=== PATIENT | female | born 1985 | race Two or more races ===

== ENCOUNTER 2018-09-10 10:24 | Day surgery (SDC) | payer BC ==
[2018-09-09 11:35] LABS: BASOPHILS # (AUTO) 0.06 x10^3/uL (0-0.1); BASOPHILS % (AUTO) 1 % (0-1); EOSINOPHILS # (AUTO) 0.07 x10^3/uL (0-0.4); EOSINOPHILS % (AUTO) 1 % (1-7); LYMPHOCYTES # (AUTO) 2.22 x10^3/uL (1-3.4); LYMPHOCYTES % (AUTO) 26 % (22-44); MD NO; MEAN CORPUSCULAR HEMOGLOBIN 31.2 pg (27.0-34.8); MEAN CORPUSCULAR HGB CONC 34.3 g/dL (32.4-35.8); MEAN PLATELET VOLUME 8.6 fL (7.4-10.4); MONOCYTES # (AUTO) 0.61 x10^3/uL (0.2-0.8); MONOCYTES % (AUTO) 7 % (2-9); NEUTROPHILS # (AUTO) 5.61 x10^3/uL (1.8-6.8); NEUTROPHILS % (AUTO) 66 % (42-75); PLATELET COUNT 311 x10^3/uL (130-400); RED BLOOD COUNT 4.97 x10^6/uL (3.82-5.3); RED CELL DISTRIBUTION WIDTH 12.4 % (9.6-15.2)
[~2018-09-10] VITALS: Ht 157.5 cm; Wt 65.4 kg
[~2018-09-10 10:24] MED LIST: Iron PO
[2018-09-10] MEDS ORDERED: BUPIVACAINE 0.25% ONE (10:56)
[2018-09-10] MEDS ORDERED: SILVER NITRATE STICK TP ONE (10:59)
[2018-09-10] MEDS ORDERED: BUPIVACAINE/PF-EPI 0.5% 1:200K ONE (10:59)
[2018-09-10] MEDS ORDERED: LACTATED RINGERS 1,000 ML IV SCH (11:00)
[2018-09-10 11:22] VITALS: BP 123/78
[2018-09-10] MEDS ORDERED: SCOPOLAMINE PATCH, 1.5MG PATCH.TD72 TD ONE (11:43)
[2018-09-10] MEDS ORDERED: ACETAMINOPHEN 500 MG TABLET ONE (11:44)
[2018-09-10] MEDS ORDERED: MIDAZOLAM 1 MG/ML, 2ML ONE (11:47)
[2018-09-10] MEDS ORDERED: FENTANYL PF 100 MCG/2ML ONE (11:47)
[2018-09-10] MEDS ORDERED: PROPOFOL 10 MG/ML, 20ML ONE (11:49)
[2018-09-10] MEDS ORDERED: MEPERIDINE/PF 25MG/0.5ML IVPush PRN (13:00)
[2018-09-10] MEDS ORDERED: LABETALOL 5MG/ML, 20ML IV PRN (13:00)
[2018-09-10] MEDS ORDERED: HYDROmorphone 1 MG/ML, 1ML IV PRN (13:00)
[2018-09-10] MEDS ORDERED: hydrALAzine 20 MG/ML, 1ML IV PRN (13:00)
[2018-09-10] MEDS ORDERED: PROMETHAZINE 25 MG/ML, 1ML IV PRN (13:00)
[2018-09-10] MEDS ORDERED: EPHEDRINE 50 MG/ML, 1ML IVPush PRN (13:00)
[2018-09-10] MEDS ORDERED: HALOPERIDOL 5 MG/ML IV PRN (13:00)
[2018-09-10] MEDS ORDERED: ALBUTEROL SULFATE 2.5 MG/3 ML NPPB PRN (13:00)
[2018-09-10] MEDS ORDERED: MIDAZOLAM 1 MG/ML, 2ML IV PRN (13:00)
[2018-09-10] MEDS ORDERED: MORPHINE SULFATE 4 MG/ML, 1ML IVPush PRN (13:00)
[2018-09-10] MEDS ORDERED: ONDANSETRON ODT 8 MG PO PRN (13:00)
[2018-09-10] MEDS ORDERED: FENTANYL PF 100 MCG/2ML IV PRN (13:00)
[2018-09-10] MEDS ORDERED: ONDANSETRON 2MG/ML, 2ML IV PRN (13:00)
[2018-09-10] MEDS ORDERED: LORazepam 2 MG/ML, 1ML IVPush PRN (13:00)
[2018-09-10] MEDS ORDERED: PROMETHAZINE 12.5 MG SUPP PR PRN (13:00)
[2018-09-10] MEDS ORDERED: OXYcodone 5 MG/5 ML ORAL.SOL UDC PO PRN (13:00)
[2018-09-10] MEDS ORDERED: KETOROLAC 30 MG/1 ML ONE (13:29)
[2018-09-10] MEDS ORDERED: ONDANSETRON 2MG/ML, 2ML ONE (13:30)
[2018-09-10] MEDS ORDERED: MEPERIDINE/PF 50 MG/ML ONE (14:08)
[2018-09-10] MEDS ORDERED: OXYcodone 5 MG/5 ML ORAL.SOL UDC ONE (14:17)
[2018-09-10] MEDS ORDERED: DEXAMETHASONE 4 MG/ML, 1ML ONE (15:46)
[2018-09-10] MEDS ORDERED: CEFAZOLIN 1,000 MG ONE (15:46)
== END 2018-09-10 16:22 | disposition home or self-care (01) ==
LOC: OUT 10:24
PROVIDERS: ATTEND Obstetrics & Gynecology
DX: D25.9 Leiomyoma of uterus, unspecified (principal); N84.0 Polyp of corpus uteri; N92.0 Excessive and frequent menstruation with regular cycle; D64.9 Anemia, unspecified; D50.9 Iron deficiency anemia, unspecified
CPT/HCPCS: 36415; 58561; 84703; 85025; 86850; 86900; 88305; J0690; J1100; J1885; J2175; J2250; J2405; J2704; J3010; J3490; J7120

== ENCOUNTER 2018-09-21 16:01 | Emergency (ER) | payer BC ==
[~2018-09-21] VITALS: Ht 162.6 cm; Wt 4.5 kg
[2018-09-21 17:09] LABS: BASOPHILS # (AUTO) 0.04 x10^3/uL (0-0.1); BASOPHILS % (AUTO) 0 % (0-1); EOSINOPHILS # (AUTO) 0.05 x10^3/uL (0-0.4); EOSINOPHILS % (AUTO) 0 % (1-7); LYMPHOCYTES # (AUTO) 2.22 x10^3/uL (1-3.4); LYMPHOCYTES % (AUTO) 17 % (22-44); MD NO; MEAN CORPUSCULAR HEMOGLOBIN 31.2 pg (27.0-34.8); MEAN CORPUSCULAR HGB CONC 34.1 g/dL (32.4-35.8); MEAN CORPUSCULAR VOLUME 91.4 fL (80-100); MEAN PLATELET VOLUME 8.8 fL (7.4-10.4); MONOCYTES # (AUTO) 0.58 x10^3/uL (0.2-0.8); MONOCYTES % (AUTO) 4 % (2-9); NEUTROPHILS # (AUTO) 10.19 x10^3/uL (1.8-6.8); NEUTROPHILS % (AUTO) 78 % (42-75); PLATELET COUNT 284 x10^3/uL (130-400); RED BLOOD COUNT 4.19 x10^6/uL (3.82-5.3); RED CELL DISTRIBUTION WIDTH 12.6 % (9.6-15.2)
[2018-09-21 17:15] LABS: ALBUMIN 3.6 g/dL (3.4-5.0); ANION GAP 9 mmol/L (5-15); CALCIUM 8.8 mg/dL (8.5-10.1); CHLORIDE 109 mmol/L (98-107); CREATININE 0.65 mg/dL (0.55-1.02)
[2018-09-21 17:21] LABS: HCG UR SG 1.021 (1.003-1.030); MICROSCOPIC AUTO
[2018-09-21 17:27] LABS: CULTURE INDICATED? NO
[2018-09-21 18:05] VITALS: BP 113/74
== END 2018-09-21 18:44 | disposition home or self-care (01) ==
LOC: ED 18:35
DX: N92.1 Excessive and frequent menstruation with irregular cycle (principal)
CPT/HCPCS: 36415; 80048; 81001; 81025; 82040; 85025; 99284